=== PATIENT | female | born 1975 | race Caucasian/White ===

== ENCOUNTER → 2018-08-05 | Outpatient (CLI) | payer OTHER ==
[~2018-08-05] MED LIST: ATIVAN1 MG; FLONASE16 GM; JUNEL1 EAC1; MECLIZINE HCL25 M1 PO; NEXIUM40 MG PO; PREDNISONE 10 M10 M1; SERTRALINE HCL100 MG; WELLBUTRIN XL300 M1 PO; ZESTRIL20 MG PO
== END ==
LOC: M.RAD 10:31
DX: Z12.31 Encounter for screening mammogram for malignant neoplasm of breast (principal)

== ENCOUNTER → 2019-11-20 | Outpatient (CLI) | payer OTHER | LOC: M.ULTRA 09:00 | DX: R10.13 Epigastric pain (principal); R19.7 Diarrhea, unspecified ==

== ENCOUNTER → 2019-12-11 | Outpatient (CLI) | payer OTHER | LOC: M.LAB 10:31 | PROVIDERS: ATTEND Internal Medicine Gastroenterology | DX: Z01.812 Encounter for preprocedural laboratory examination (principal); R11.0 Nausea; R14.0 Abdominal distension (gaseous); K21.9 Gastro-esophageal reflux disease without esophagitis; K59.00 Constipation, unspecified; Z79.1 Long term (current) use of non-steroidal anti-inflammatories (NSAID) ==

== ENCOUNTER → 2020-11-02 | Outpatient (CLI) | payer OTHER | LOC: M.RAD 12:12 | PROVIDERS: ATTEND Registered Nurse Diabetes Educator | DX: R05 Cough (principal) ==

== ENCOUNTER → 2021-08-18 | Outpatient (CLI) | payer OTHER | LOC: M.ULTRA 16:28 | PROVIDERS: ATTEND Internal Medicine | DX: R60.0 Localized edema (principal) ==